=== PATIENT | female | born 1950 | race Caucasian/White ===

== ENCOUNTER → 2019-10-17 09:08 | Outpatient (CLI) | payer MEDICARE, SELFPAY ==
--- NOTE | ~2019-10-17 | XR_ITS ---
EXAMINATION: XR knee LT 2V DATE: 10/17/2019 09:55 INDICATION: Left knee pain. TECHNIQUE: 2 views of left knee were obtained. COMPARISON: None. FINDINGS: Bone alignment is normal. No fracture. There is mild tricompartmental osteoarthritis. There is a small knee joint effusion. IMPRESSION: 1. Mild left knee osteoarthritis. 2. Small left knee joint effusion. Reviewed, dictated and finalized at location A. [facility]
== END ==
PROVIDERS: PCP Internal Medicine; Visit Provider Internal Medicine
DX: M17.12 Unilateral primary osteoarthritis, left knee (principal); M25.462 Effusion, left knee
CPT/HCPCS: 73560

== ENCOUNTER 2020-10-07 17:59 | Emergency (ER) | payer MEDICARE, SELFPAY ==
--- NOTE | ~2020-10-07 | XR_ITS ---
EXAMINATION: XR shoulder LT min 2V DATE: 10/07/2020 18:54 INDICATION: Left shoulder pain. TECHNIQUE: 4 views of left shoulder were obtained. COMPARISON: Left shoulder radiographs 11/16/2010 FINDINGS: Bone alignment is normal. No fracture. There is mild osteoarthritis of glenohumeral joint a nd acromioclavicular joint. There is a large hiatal hernia. IMPRESSION: 1. Mild polyarticular osteoarthritis. 2. Large hiatal hernia. Reviewed, dictated and finalized at location A. [facility]
[2020-10-07 18:40] VITALS: BP 150/73; PULSE 60; RESP 16; TEMP 36.7; O2SAT 98
--- NOTE | 2020-10-07 19:00 | ED.UPPEXIN ---
HPI - Extremity Injury (Upper) General Chief Complaint: Extremity Injury, Upper Stated Complaint: fell left shoulder pain Time Seen by Provider: 10/07/20 18:01 Source: patient Mode of arrival: ambulatory Limitations: no limitations History of Present Illness HPI narrative: 70-year-old female presents to [facility] with complaints of left shoulder pain and decreased range of motion for the past 2 days. Patient reports that she was putting on her mask when she tripped and fell in her home landing on her left shoulder. Patient reports that she has been taking [id number] Motrin and Tylenol with minimal relief. Patient reports that she has previously fallen and landed on her left shoulder multiple times in the past. Patient denies hitting her head, loss of consciousness, swelling, erythema, bruising, numbness or tingling. MD complaint: injury to: left and shoulder Onset (ago): day(s) (2) Other Extremity Injury: Left: shoulder Place: home Relieving factors: none Exacerbating factors: movement of extremity Context: fall Associated symptoms: denies other symptoms Treatments prior to arrival: NSAIDS Related Data Home Medications Medication Instructions Recorded Confirmed calcium carbonat and lactate 200 2 tablet PO BID 02/18/20 07/25/20 mg calcium-vitamin D3 250 unit tablet oxybutynin chloride 5 mg tablet 5 mg PO BID 07/22/20 07/25/20 potassium chloride [Klor-Con M20] meq PO 10/07/20 Allergies Allergy/AdvReac Type Severity Reaction Status Date / Time doxycycline Allergy Unknown hives Verified 07/22/20 07:04 Review of Systems Constitutional: Constitutional: Denies chills, Denies fatigue, Denies fever(s) and Denies weakness ENT: Denies sore throat Cardiovascular: Cardiovascular: Denies chest pain, Denies rapid heart rate, Denies radiating jaw, neck or arm pain and Denies slow heart rate Respiratory: Respiratory: Denies chest congestion, Denies cough, Denies dyspnea and Denies wheezing Gastrointestinal: Gastrointestinal: Denies abdominal pain, Denies constipation, Denies diarrhea, Denies nausea and Denies vomiting Musculoskeletal: Musculoskeletal: Denies back pain, Reports arthralgias and Denies muscle cramps Comments: left shoulder pain and decreased ROM Integumentary/Breasts: Skin/Breast: Denies rash Neurologic: Denies dizziness [facility] Past Medical History Medical History (Updated 10/07/20 @ 19:08 by Malu Uriarte APRN) Afib BMI 35.0-35.9,adult Constipation Encounter for Medicare annual wellness exam Encounter for routine adult health examination without abnormal findings Hypomagnesemia Left knee pain On buttermaker continuous churn drug therapy OLIVIA on CPAP Vitamin D deficiency Surgical History Surgical History (Updated 10/07/20 @ 19:03 by Malu Uriarte APRN) H/O: hysterectomy Family History Family History Mother Family history of malignant neoplasm of kidney Family history of kidney disease Social History Social History Smoking status: Never smoker Alcohol intake: current Comments At time of signature, I agree with nursing past medical, surgical, social and family history. There is no relevant family history pertinent to the presenting complaint. Exam Const: General: no acute distress and alert Nutritional Appearance: well nourished Orientation/consciousness: patient oriented x3 Neck: Neck: normal visual inspection Resp: Effort & Inspection: normal respiratory effort, not tachypneic and no use of accessory muscles Auscultation: clear to auscultation bilaterally, no rales and no wheezes Cardio: Rate: regular rate, not bradycardic and not tachycardic Rhythm: regular rhythm Heart sounds: no murmurs Skin: General skin exam: normal color, no jaundice and no pallor Rashes: no rashes Wounds: no wounds Neuro: General: patient oriented x3 and moves all extremities Speech: normal
[2020-10-07 19:10] VITALS: BP 130/88
== END 2020-10-07 19:10 | disposition home or self-care (01) ==
PROVIDERS: Emergency Provider Nurse Practitioner Family; PCP Internal Medicine
DX: M25.512 Pain in left shoulder (principal); I48.91 Unspecified atrial fibrillation; G47.30 Sleep apnea, unspecified
CPT/HCPCS: 73030; 99213; A4565; G0463

== ENCOUNTER → 2020-10-13 07:42 | Outpatient (CLI) | payer MEDICARE, SELFPAY ==
--- NOTE | ~2020-10-13 | XR_ITS ---
EXAMINATION: XR wrist LT 2V DATE: 10/13/2020 08:05 INDICATION: Left wrist injury. TECHNIQUE: 2 views of left wrist were obtained. COMPARISON: None. FINDINGS: Bone alignment is normal. No fracture. There is mild osteoarthritis of first carpometacarpa l joint. IMPRESSION: 1. Mild osteoarthritis of first carpometacarpal joint. Reviewed, dictated and finalized at location A. SCRIPTION
--- NOTE | ~2020-10-13 | XR_ITS ---
EXAMINATION: XR forearm LT 2V DATE: 10/13/2020 08:05 INDICATION: Left forearm injury. TECHNIQUE: 2 views of left forearm were obtained. COMPARISON: None. FINDINGS: Bone alignment is normal. No fracture. There is mild osteoarthritis of first carpometacarpa l joint. No elbow joint effusion. IMPRESSION: 1. No fracture. Reviewed, dictated and finalized at location A. [facility] IMPRESSION: 1. No fracture.
--- NOTE | ~2020-10-13 | XR_ITS ---
EXAMINATION: XR elbow LT 2V DATE: 10/13/2020 08:05 INDICATION: Left elbow injury. TECHNIQUE: 2 views of left elbow were obtained. COMPARISON: None. FINDINGS: Bone alignment is normal. No fracture. Joint spaces are well maintained. There is an enthes ophyte at medial humeral epicondyle. There is no elbow joint effusion. IMPRESSION: 1. No fracture. Reviewed, dictated and finalized at location A. [facility] IMPRESSION: 1. No fracture.
== END ==
PROVIDERS: PCP Internal Medicine; Visit Provider Internal Medicine
DX: T14.90XA Injury, unspecified, initial encounter (principal); M79.602 Pain in left arm; M19.032 Primary osteoarthritis, left wrist
CPT/HCPCS: 73070; 73090; 73100

== ENCOUNTER 2020-12-03 06:52 | Outpatient (CLI) | payer MEDICARE, SELFPAY ==
--- NOTE | ~2020-12-03 | MR_ITS ---
EXAMINATION: MR shoulder LT wo/w con DATE: 12/03/2020 08:40 INDICATION: Left shoulder pain TECHNIQUE: Magnetic resonance imaging (MRI) of the left shoulder was performed without and with 19 mL Multihance intravenous contrast. Sequences included axial and coronal PD-weighted FS FSE, axial and sagittal T1-weighted FSE, sagittal and coronal T2-weighted FS FSE, axial T1-weighted FS FSE and postc ontrast axial and coronal T1-weighted FS FSE. COMPARISON: Left shoulder radiographs dated 10/07/2020 FINDINGS: Coracoacromial arch: The acromion undersurface is curved in morphology (type II). The coracoacromial ligament is normal. M oderate acromioclavicular osteoarthritis. Rotator cuff: Moderate supraspinatus and mild infraspinatus tendinopathy. There is a small bursal sided tear extend ing 5 mm AP along the midportion of the superior facet footplate. The bursal side of the tear margin is retracted approximately 8 mm . The tear involves approximately two thirds of the tendon thickness. The subscapularis and teres minor tendons are normal. No asymmetric atrophy or abnormal signal of th e muscles of the rotator cuff or remainder of the shoulder girdle. Biceps tendon, glenoid labrum and glenohumeral cartilage: Long head of the biceps tendon is normal. Degenerative tearing at the 10:30-11:30 position of the pos terior superior glenoid labrum. Mild partial thickness cartilage loss along the cephalad two thirds o f the glenoid and along the inferior and posterior margins of the humeral head with smooth chondral s urfaces and without degenerative subchondral changes. Fluid: Physiologic amount of fluid in the glenohumeral joint and biceps tendon sheath. No loose osteochondra l bodies. Small amount of fluid and mild associated enhancing synovitis in the subacromial/subdeltoid bursa as well as the subcoracoid bursa consistent with mild bursitis. Bones: Normal marrow signal with no edema, fracture or abnormal marrow replacing process. Mild cystic change and edema along the greater tuberosity footplate of the rotator cuff likely sequela of chronic rotat or cuff disease. IMPRESSION: 1. Mild to moderate supraspinatus and infraspinatus tendinopathy with small moderate severity bursal sided tear of the distal supraspinatus tendon. 2. Mild right and humeral osteoarthritis with degenerative tearing at the posterior superior glenoid labrum. 3. Moderate acromioclavicular osteoarthritis. 4. Mild subacromial/subdeltoid and subcoracoid bursitis. Reviewed, dictated and finalized at location A. IMPRESSION: 1. Mild to moderate supraspinatus and infraspinatus tendinopathy with small mod erate severity bursal sided tear of the distal supraspinatus tendon. 2. Mild right and humeral osteoarthritis with degenerative tearing at the poste rior superior glenoid labrum. 3. Moderate acromioclavicular osteoarthritis. 4. Mild subacromial/subdeltoid and subcoracoid bursitis.
== END 2020-12-03 06:53 | disposition home or self-care (01) ==
PROVIDERS: PCP Internal Medicine; Visit Provider Internal Medicine
DX: M19.011 Primary osteoarthritis, right shoulder (principal); M75.51 Bursitis of right shoulder
CPT/HCPCS: 73223; A9577

== ENCOUNTER → 2020-12-14 00:14 | Outpatient (CLI) | payer MEDICARE, SELFPAY ==
[2020-12-14 19:16] LABS: SARS-CoV-2 RNA PCR Negative
== END ==
PROVIDERS: PCP Internal Medicine; Visit Provider Internal Medicine Gastroenterology
DX: Z01.812 Encounter for preprocedural laboratory examination (principal); Z20.822 Contact with and (suspected) exposure to COVID-19
CPT/HCPCS: C9803; U0003; U0005

== ENCOUNTER 2020-12-17 01:10 | Day surgery (SDC) | payer MEDICARE, SELFPAY ==
[2020-12-09 14:43] VITALS: BMI 34.1
[2020-12-17 11:52] VITALS: BP 141/68; PULSE 69; RESP 18; TEMP 36.4; O2SAT 97; BMI 33.5
[2020-12-17 11:58] LABS: Glucose Point of Care 107 (65-105)
[2020-12-17] MEDS: LACTATED RINGERS 1,000 ML 150 ML IV CONT (11:59)
--- NOTE | 2020-12-17 12:10 | WPDANESEPPF ---
Anes - Initial Pre Proc Eval Procedure: Operation Date: 12/17/20 13:00 Proposed Procedures p Esophagogastroduodenoscopy & Colonoscopy - Yogesh Cisneros MD Date/Time: 12/17/20 12:10 Surgeon: Yogesh Cisneros MD Pre Op Diagnosis: iron deficient anemia Patient Data Age: 70 Gender: F Height: 1.68 m Weight: 94.2 kg Last Vital Signs Temp 36.4 C L 12/17/20 11:52 Pulse 69 12/17/20 11:52 Resp 18 12/17/20 11:52 BP 141/68 H 12/17/20 11:52 Pulse Ox 97 12/17/20 11:52 Allergies Allergy/AdvReac Type Severity Reaction Status Date / Time doxycycline Allergy Unknown hives Verified 12/17/20 11:50 Home Medications Medication Instructions Recorded Confirmed Type enalapril maleate 10 mg tablet 10 mg PO BID #180 tablet 01/07/20 12/09/20 Rx calcium carb and lactate 200 2 tablet PO BID 02/18/20 12/09/20 History mg-vitamin D3 6.25 mcg (250 unit) tablet citalopram 40 mg tablet 40 mg PO DAILY #90 tablet 04/01/20 12/09/20 Rx diltiazem HCl 240 mg 240 mg PO DAILY #90 cap 07/06/20 12/09/20 Rx capsule,extended release 24 hr oxybutynin chloride 5 mg tablet 5 mg PO BID 07/22/20 12/09/20 History magnesium oxide 400 mg (241.3 mg See Rx Instructions .ROUTE 08/31/20 12/09/20 Rx magnesium) tablet .COMPLEX #450 tablet potassium chloride [Klor-Con M20] 20 meq PO DAILY 10/07/20 12/09/20 History lorazepam 0.5 mg tablet 0.5 mg PO TID PRN #60 tablet 12/02/20 12/09/20 Rx cholecalciferol (vitamin D3) 1,250 1,250 mcg PO .COMPLEX #10 cap 12/04/20 12/09/20 Rx mcg (50,000 unit) capsule cholecalciferol (vitamin D3) 50 50 mcg PO DAILY 12/04/20 12/09/20 History mcg (2,000 unit) capsule Eliquis 5 mg PO BID 12/09/20 12/09/20 History atorvastatin 40 mg PO DAILY 12/09/20 12/09/20 History ferrous sulfate 325 mg (65 mg 325 mg PO BID #180 tablet 12/09/20 12/09/20 Rx iron) tablet levothyroxine 112 mcg PO DAILY 12/09/20 12/09/20 History metformin 500 mg PO DAILY 12/09/20 12/09/20 History pantoprazole 80 mg PO DAILY 12/09/20 12/09/20 History sod picosulf 10 mg-magnes 3.5 160 ml PO BID #160 ml 12/09/20 12/09/20 Rx gram-citric 12 gram/160 mL oral solution Laboratory Tests 12/17/20 11:55 POC Capillary Glucose 107 mg/dl mg/dl (65-105) Patient hx anesthesia problems: none Family hx anesthesia problems: none PMFSH Past Medical History Medical History (Updated 12/17/20 @ 12:10 by Ludwig Alston DO) Afib Arm pain, left BMI 35.0-35.9,adult BMI 36.0-36.9,adult Constipation DM type 2 (diabetes mellitus, type 2) Encounter for Medicare annual wellness exam Encounter for routine adult health examination with abnormal findings Encounter for routine adult health examination without abnormal findings Hyperlipidemia Hypertension Hypomagnesemia Hypothyroidism Iron deficiency anemia Left knee pain On care home drug therapy OLIVIA on CPAP Shoulder pain Trauma Vitamin D deficiency Surgical History Surgical History H/O: hysterectomy Family History Family History Mother Family history of malignant neoplasm of kidney Family history of kidney disease Social History Social History Smoking status: Never smoker Alcohol intake: current Alcohol use details: ONCE PER MONTH Living arrangements: with family Gender identity (if verbalized by the patient): Female Spiritual care concerns: No Anes - Eval Final PreProcedure Day of Procedure 12/17/20 12:10 Patient weight: obese Heart: regular rate and rhythm Lungs: clear to auscultation and normal air movement Airway: Mallampati scale class II Neurological: alert and oriented Last oral intake: >/= 8 hours ASA classification: III Emergent: no Anesthetic plan: proceed Anesthesia type and monitoring: general GIVS and standard monitoring Informed Consent: The patient's anest
--- NOTE | 2020-12-17 12:50 | WPDGICN ---
Assessment and Plan Assessment and plan (1) Iron deficiency anemia: Qualifiers: Iron deficiency anemia type: unspecified iron deficiency Qualified Code(s): D50.9 - Iron deficiency anemia, unspecified Code(s): D50.9 - Iron deficiency anemia, unspecified Status: Acute Assessment and Plan: Patient with anemia and iron deficient indices. Suspicious for chronic GI blood loss. Colonoscopy an EGD will be performed today to evaluate. Iron replacement subsequently has advised. (2) Dysphagia: Code(s): R13.10 - Dysphagia, unspecified Status: Acute Assessment and Plan: Patient reports food catching the mid substernal ports the chest on swallowing. Plan is for EGD to assess more thoroughly. Suspect this may be related to her known history of GE reflux. (3) Gastroesophageal reflux: Qualifiers: Esophagitis presence: without esophagitis Qualified Code(s): K21.9 - Gastro-esophageal reflux disease without esophagitis Code(s): K21.9 - Gastro-esophageal reflux disease without esophagitis Status: Acute Assessment and Plan: Patient with established history of GE reflux. She is known to have a hiatal hernia. Currently on acid suppression medications. Plan to continue anti-reflux measures. Further recommendations may be given after endoscopy. GI Consult Note Consult date/time: 12/17/20 12:50 HPI: Dorothea Aguirre is a 70 year old female Seen in evaluation at the request of DR. Cagle. patient found to be anemia with iron deficient indices. She denies any obvious blood in her stools. She does have a past medical history of atrial fibrillation on Eliquis anticoagulation. No obvious bleeding has been described however she has been treated for GE reflux disease because of a hiatal hernia. But currently denies any heartburn. She does notice occasional difficulty swallowing with food catching the mid substernal portion the chest. Family history is noncontributory. She presents today for GI endoscopy to evaluate anemia. Review of Systems Review of Systems: All systems reviewed & are unremarkable except as noted in HPI and below PMFSH Past Medical History Medical History Afib Arm pain, left BMI 35.0-35.9,adult BMI 36.0-36.9,adult Constipation DM type 2 (diabetes mellitus, type 2) Encounter for Medicare annual wellness exam Encounter for routine adult health examination with abnormal findings Encounter for routine adult health examination without abnormal findings Hyperlipidemia Hypertension Hypomagnesemia Hypothyroidism Iron deficiency anemia Left knee pain On intermediate frame tender drug therapy OLIVIA on CPAP Shoulder pain Trauma Vitamin D deficiency Surgical History Surgical History H/O: hysterectomy Family History Family History Mother Family history of malignant neoplasm of kidney Family history of kidney disease Social History Social History Smoking status: Never smoker Alcohol intake: current Alcohol use details: ONCE PER MONTH Living arrangements: with family Gender identity (if verbalized by the patient): Female Spiritual care concerns: No Meds Home Medications and Allergies Home Medications Medication Instructions Recorded Confirmed Type enalapril maleate 10 mg tablet 10 mg PO BID #180 tablet 01/07/20 12/09/20 Rx calcium carb and lactate 200 2 tablet PO BID 02/18/20 12/09/20 History mg-vitamin D3 6.25 mcg (250 unit) tablet citalopram 40 mg tablet 40 mg PO DAILY #90 tablet 04/01/20 12/09/20 Rx diltiazem HCl 240 mg 240 mg PO DAILY #90 cap 07/06/20 12/09/20 Rx capsule,extended release 24 hr oxybutynin chloride 5 mg tablet 5 mg PO BID 07/22/20 12/09/20 History magnesium oxide 400 mg (241.3 mg See
[2020-12-17 13:26] VITALS: BP 159/85; PULSE 65; RESP 23; O2SAT 99
[2020-12-17 13:36] VITALS: BP 164/80; PULSE 63; RESP 19; O2SAT 99
[2020-12-17 13:40] VITALS: BP 157/79; PULSE 59; RESP 21; O2SAT 97
== END 2020-12-17 14:05 | disposition home or self-care (01) ==
PROVIDERS: PCP Internal Medicine; Visit Provider Internal Medicine Gastroenterology
PROC: 0DJ08ZZ Inspection of Upper Intestinal Tract, Via Natural or Artificial Opening Endoscopic (ICD-10-PCS; CPT 43235; principal; 2020-12-17 13:00)
DX: Z12.11 Encounter for screening for malignant neoplasm of colon (principal); D50.9 Iron deficiency anemia, unspecified; K44.9 Diaphragmatic hernia without obstruction or gangrene; R13.10 Dysphagia, unspecified; K21.9 Gastro-esophageal reflux disease without esophagitis; I48.91 Unspecified atrial fibrillation; I10 Essential (primary) hypertension; E78.5 Hyperlipidemia, unspecified; E03.9 Hypothyroidism, unspecified; G47.33 Obstructive sleep apnea (adult) (pediatric); E55.9 Vitamin D deficiency, unspecified; E11.9 Type 2 diabetes mellitus without complications; Z79.01 Long term (current) use of anticoagulants; Z79.84 Long term (current) use of oral hypoglycemic drugs; E66.9 Obesity, unspecified; Z68.33 Body mass index [BMI] 33.0-33.9, adult
CPT/HCPCS: 43235; G0121; 82948; J2001; J2704; J7120

== ENCOUNTER 2024-09-18 07:36 | Outpatient (CLI) | payer MEDICARE, SELFPAY ==
--- OUTSIDE RECORDS SUMMARY | 2024-09-18 07:42 | XMS_ITS | Patient Health Summary ---
Author Organization [facility] Address [address] [place] [address] Care Team Providers Care Core Measures Abstractor Name Role Phone Javid Cagle MD Primary Care Provider [phone] Note from [facility],non-owned Affiliates and Associated Physician Practices is amultiple site organization consisting of ambulatory clinics and hospital sitesin [place], [place], [place] and [place]. This disclosure is being madepursuant to the Care Everywhere program and may not contain all information available regarding this patient. Last updated 18.[facility] Allergies No known active allergies Medications * Be aware that medications may not be up to date on this document. Alwaysverify current medications with the patient. * ENALAPRIL MALEATE PO * Potassium Chloride * atorvastatin (LIPITOR) 20 MG tablet Take 20 mg by mouth at bedtime * dilTIAZem coated beads 24hr (CARDIZEM CD) 120 MG capsule Take 120 mg by mouth once daily Do not crush or chew. * NIACIN ER PO * Citalopram Hydrobromide (CITALOPRAM PO) * Esomeprazole Magnesium (NEXIUM PO) * Levothyroxine Sodium (SYNTHROID PO) * OXYBUTYNIN TD * aspirin (ASPIRIN 81) 81 MG chew tablet Take 81 mg by mouth once daily * Levocetirizine Dihydrochloride (XYZAL PO) * albuterol HFA (PROVENTIL;VENTOLIN;PROAIR) 108 (90 BASE) MCG/ACT inhaler (Started 11/29/2017) Inhale 2 puffs by mouth every 6 hours as needed Social History Tobacco Use Types Packs/Day Years Used Date Smoking Tobacco: Never Smokeless Tobacco: Never Sex and Gender Information Value Date Recorded Sex Assigned at Not on file Gender Identity Not on file Sexual Orientation Not on file Last Filed Vital Signs Vital Sign Reading Time Taken Comments Blood Pressure 118/84 11/29/2017 5:05 PM CDT Pulse 72 11/29/2017 5:05 PM CDT Temperature 36.8 ??C (98.2 ??F) 11/29/2017 5:05 PM CD T Respiratory Rate 16 11/29/2017 5:05 PM CDT Oxygen Saturation 97% 11/29/2017 5:05 PM CDT Inhaled Oxygen Concentration - - Weight 95.7 kg (211 lb) 11/29/2017 5:05 PM CDT Height 167.6 cm (5' 6 ) 11/29/2017 5:05 PM CDT Body Mass Index 34.06 11/29/2017 5:05 PM CDT Procedures * INFLUENZA A+B - POINT OF CARE (AMB)(Performed 11/29/2017) Performed for Acute ethmoidal sinusitis, recurrence not specified * STREP A SCREEN - POINT OF CARE (AMB) STL(Performed 11/29/2017) Performed for Acute ethmoidal sinusitis, recurrence not specified Results * (ABNORMAL) INFLUENZA A+B - POINT OF CARE (AMB) (11/29/2017 5:43 PM CDT) Pathologist [facility] Influenza A Antigen Rapid Negative Negative Influenza B Antigen Rapid Positive(A) Negative Influenza Internal Control present NEGATIVE - POSITIVE Influenza Lot Number [id number] Influenza Expiration Date 09 22 2019 Other NASOPHARYNGEAL SWAB / Unknown 11/29/2017 5:43 PM CDT Man [facility] - POINT OF [place] RE ORDERABLES * STREP A SCREEN (11/29/2017 5:28 PM CDT) Pathologist [facility] Strep A Rapid POCT Negative Negative Strep A Internal Control Present Lot # [id number] Expiration Date 06 22 2019 Throat ENTIRE THROAT (SURFACE REGION OF NECK) / Unknown 11/29/2017 5:28 PM CDT Man [facility] - POINT OF [place] RE ORDERABLES Care Teams Core Measures Abstractor Relationship Specialty Start Date End Date Javid Cagle MD [address] [place] [address] PCP - General Internal Medicine 11/29/17
--- OUTSIDE RECORDS SUMMARY | 2024-09-18 07:42 | XMS_ITS | Referral Summary ---
Author Organization [facility] Address [address] [place] [address] Care Team Providers Care Diagrammer Name Role Phone Javid Cagle MD Primary Care Provider [phone] Source Comments [facility],non-owned Affiliates and Associated Physician Practices is amultiple site organization consisting of ambulatory clinics and hospital sitesin [place], [place], [place] and [place]. This disclosure is being madepursuant to the Care Everywhere program and may not contain all information available regarding this patient. Last updated 18.[facility] Allergies No known active allergies Medications * Be aware that medications may not be up to date on this document. Alwaysverify current medications with the patient. Medication Sig Dispensed Refills Start Date End Date Status ENALAPRIL MALEATE PO Acti ve Potassium Chloride Active atorvastatin (LIPITOR) 20 MG tablet Take 20 mg by mouth at bedtime Active dilTIAZem coated beads 24hr (CARDIZEM CD) 120 MG capsule Take 120 mg by mouth once daily Do not crush or chew. Active NIACIN ER PO Active Citalopram Hydrobromide (CITALOPRAM PO) Active Esomeprazole Magnesium (NEXIUM PO) Active Levothyroxine Sodium (SYNTHROID PO) Active OXYBUTYNIN TD Active aspirin (ASPIRIN 81) 81 MG chew tablet Take 81 mg by mouth once daily Active Levocetirizine Dihydrochloride (XYZAL PO) Active albuterol HFA (PROVENTIL;VENTOLIN;PRO AIR) 108 (90 BASE) MCG/ACT inhalerIndications:Whee zing Inhale 2 puffs by mouth every 6 hours as needed 1 Inhaler 11/29/2017 Active Social History Tobacco Use Types Packs/Day Years [...] Mass Index 34.06 11/29/2017 5:05 PM CDT Plan of Treatment Not on file Care Teams Diagrammer Relationship Specialty Start Date End Date Javid Cagle MD [address] [place] [address] PCP - General Internal Medicine 11/29/17
--- OUTSIDE RECORDS SUMMARY | 2024-09-18 07:42 | XMS_ITS | Clinical Summary ---
Author Organization [facility] D Address [address] [place] [address] Care Team Providers Care Director Database Name Role Phone Javid Cagle MD Primary Care Provider [phone] Julia Sandoval Unavailable [phone] Lai Caro MD Unavailable [phone] Robert Tidwell MD Unavailable [phone] Allergies Active Allergy Reactions Criticality Noted Date Comments Mold Sneezing Low 01/15/2021 Morphine Nausea & Vomiting,Nausea And Vomiting Low 01/25/2021 Medications enalapril (VASOTEC) 10 mg tabletIndications :hypertension Take 1 tablet (10 mg total) by mouth 2 (two) times a day Active pantoprazole DR (PROTONIX) 40 mg EC tabletIndications :Treatment of Non-Bleeding Gastric Disorder,GERD Take 1 tablet (40 mg total) by mouth every morning Active citalopram (CeleXA) 40 mg tabletIndications :Anxiety with Depression Take 1 tablet (40 mg total) by mouth nightly Active fexofenadine (LETTY) 180 mg tabletIndications :Seasonal Allergic Rhinitis Take 1 tablet (180 mg total) by mouth nightly Active calcium carbonate-vitamin D3 1500 mg (600 mg elemental) -200 units per tabletIndications :Hypocalcemia Prevention,Osteop orosis Take 1 tablet by mouth 2 (two) times a day Active potassium chloride ER (KLOR-CON) 20 mEq CR tablet Take 0.5 tablets (10 mEq total) by mouth 2 (two) times a day Active oxybutynin (DITROPAN) 5 mg tabletIndications :Bladder Hyperactivity Take 1 tablet (5 mg total) by mouth 3 (three) times a day 1 Active cholecalciferol (VITAMIN D-3) 2000 unit tabletIndications :Prevention of Vitamin D Deficiency Take 1 tablet (2,000 Units total) by mouth every morning Active magnesium oxide (MAG-OX) 400 mg (241.3 mg elemental magnesium) tabletIndications :hypomagnesemia Take 1 tablet (400 mg total) by mouth 2 (two) times a day 2 Active ferrous ojdlges-H-brusu acid 105 mg iron- 500 mg-800 mcg tablet extended release Take 325 mg by mouth daily 3 Active levothyroxine (SYNTHROID) 88 mcg tabletIndications :hypothyroidism Take 1 tablet (88 mcg total) 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 3 Active LORazepam (ATIVAN) 0.5 mg tablet Take 1 tablet (0.5 mg total) by mouth every 8 (eight) hours as needed for anxiety 3 Active atorvastatin (LIPITOR) 80 mg tabletIndications :hyperlipidemia Take 1 tablet (80 mg total) by mouth every morning 30 tablet 3 3 Active metFORMIN (GLUCOPHAGE) 500 mg tablet Take 1 tablet (500 mg total) by mouth 2 (two) times a day with meals Active apixaban (ELIQUIS) 5 mg tablet Take 1 tablet (5 mg total) by mouth 2 (two) times a day 180 tablet 3 4 Active dilTIAZem CD 240 mg 24 hr capsule TAKE 1 CAPSULE BY MOUTH DAILY 30 capsule 5 4 Active Additional Information Patient taking differently:240 mg oralNightly, Reported on 07/30/2024 famotidine (PEPCID) 10 mg tablet Take 2 tablets (20 mg total) by mouth daily as needed for heartburn Active Active Problems Patient Care Coordination No te Formatting of this note is d ifferent from the original. Yin Verduzco NP 03/28/2024 10:38 AM This is a 74-year-old female patient presenting to the clinic today in consultation for a large hiatal hernia. She is a self-referral to the clinic. She has a past medical history significant for allergic rhinitis, anemia, anxiety, atrial fibrillation, dysphagia, GERD, heart disease, hyperlipidemia, hypertension, sleep apnea, thyroid disease, and type 2 diabetes mellitus. She has never been a smoker. She has previously seen Dr. Michael Patrick in 2022 regarding dysphagia and has underwent multiple esophageal dilations in the past. She underwent a CT of the chest without contrast on 03/29/2024 which reveals: She underwent an esophagram on 01/17/2023 which reveals: Narrative & Impression EXAMINATION: BARIUM ESOPHAGRAM HISTORY: Chronic dysphagia to solids status post multiple dilatations, hiatal hernia. TECHNIQUE: The patient was given barium as well as effervescent crystals to drink, and multiple fluoroscopic and conventional overhead radiographs were obtained. FINDINGS: The patient's swallowing function is normal. The esophageal mucosa is normal without fold abnormalities or masses. A large hiatal hernia is noted. The esophageal motility is abnormal, with dysmotility of the distal esophagus proximal to the hiatal hernia and retention/reflux of swallowed contrast. There is passage of contrast through a normal gastroesophageal junction. The visualized portions of the stomach are normal. Mild amount of reflux was elicited with provocative maneuvers IMPRESSION: Distal esophageal dysmotility associated with a large hiatal hernia. Dictated by: Joe Barrios MD The radiology attending physician has personally reviewed this study, and had reviewed and/or edited this written report and agrees with it. Electronically signed by: Nia Bai M.D. Imaging available on file for review. She is here for further discussion and evaluation. Problem Noted Date Diagnosed Date Hiatal hernia 04/02/2024 Hiatal hernia with GERD 03/14/2024 Esophageal dysmotility 03/14/2024 Central retinal artery occlusion of left eye Esophageal dysphagia 01/17/2023 Anticoagulation management encounter 11/14/2021 Assessment & Plan (01/23/2023 11:39 AM CDT): - remains compliant and asymptomatic - continue to take Eliquis 5 mg BID for thromboprophylaxis - [id number] score is 4 Assessment & Plan (11/14/2021 1:41 PM CDT): The patient has a [id number] score of 4 (annualized risk of stroke 4.0 %). I have therefore recommended that she remain anticoagulated for thromboprophylaxis. Traumatic complete tear of left rotator cuff Overview (01/05/2021): Added automatically from request for surgery [id number] Obstructive sleep apnea syndrome 11/01/2019 Assessment & Plan (09/10/2021 11:51 AM [facility]): She is back to using her CPAP consistently. Atrial fibrillation may have been related to being off CPAP. Assessment & Plan (05/03/2021 9:46 AM CDT): She is compliant with CPAP. Assessment & Plan (05/04/2020 9:50 AM CDT): Mild, but symptomatically improved with treatment. Assessment & Plan (11/01/2019 9:45 AM CDT): Compliant with CPAP, and feeling much better. Untreated sleep apnea may have contributed to the development of atrial fibrillation, and hopefully treatment will reduce her risk of recurrence. Other persistent atrial fibrillation 07/09/2019 Assessment & Plan (07/30/2024 10:26 AM [facility]): No recurrent atrial arrhythmias since repeat ablation -- continue diltiazem and Eliquis 5 b.i.d. Assessment & Plan (01/22/2024 11:09 AM CDT): No recurrent atrial arrhythmias since repeat ablation - continue diltiazem and Eliquis 5 b.i.d. Assessment & Plan (07/25/2023 9:22 AM [facility]): Status post repeat AFib ablation and left atrial flutter ablation without any recurrent tachyarrhythmias in the month since her ablation. - continue diltiazem and Eliquis 5 b.i.d. Assessment & Plan (01/23/2023 11:38 AM CDT): - symptomatic, persistent atrial fibrillation - presents today in sinus rhythm at 61 beats per minute - denies any reoccurrence of atrial fibrillation, asymptomatic - decrease Cardizem CD to 240 mg daily for orthostatic hypotension - follow-up in 2 months for 12 lead EKG and clinic visit Assessment & Plan (01/11/2023 10:23 AM CDT): Status post repeat AFib ablation and left atrial flutter ablation without any recurrent tachyarrhythmias in the month since her ablation. - continue diltiazem and Eliquis 5 b.i.d. - follow-up with EP scheduled for next month Assessment & Plan (10/12/2022 5:05 PM [facility]): Underwent ablation in November 2021 without clinical recurrence of AFib however she presents today with EKG showing atypical flutter versus AFib at controlled rate; she does not have any reportable symptoms related to the arrhythmia. Wonder if her COVID infection a couple weeks ago could have been a trigger. Although she is tolerating well given she was free of recurrence following ablation until recently recommend bahai of sinus rhythm. Since this was likely triggered by COVID infection will perform cardioversion without antiarrhythmic; sotalol could be an option if she has early recurrence after cardioversion but will reserve this for now unless needed - continue diltiazem 240, Eliquis 5 b.i.d. - get 7 day event monitor to see if arrhythmia persistent and if so will schedule SHABBIR cardioversion Assessment & Plan (11/14/2021 1:38 PM CDT): Symptomatic persistent atrial fibrillation, refractory to cardioversion. We discussed options for management, and the patient is disinclined to pursue additional medical therapy. As an alternative, we discussed catheter ablation, which may represent her best chance for staying in sinus rhythm in the long-term. We discussed the rationale for atrial fibrillation ablation, including the steps involved in ablation. I detailed the risks of the procedure, including vascular injury/hematoma, myocardial injury/perforation, stroke, myocardial infarction, pulmonary vein stenosis, thermal esophageal injury, phrenic nerve injury, and . I estimated a 60-70% chance of freedom from long-term atrial arrhythmia, and the patient understands that occasionally a second procedure is necessary. Because of the patient's persistent atrial fibrillation, I recommended that they undergo transesophageal echocardiography (to exclude the presence of left atrial thrombus) immediately prior to EP study and ablation. From: August, Soraya LS, Shaunna JS, Adin H, Luis DEBBIE, Ciarra JE, Christine EMRE, Sujatha PT, Erendira HERRERA, ME, Barrett KT, Lexi RL, Benigno WG, Giuliano PJ, Tala CM, Vero CW. 2014 AHA/ACC/HRS guideline for the management of patients with atrial fibrillation: a report of the [place] [employer]/[place] [employer] Association Task Force on Practice Guidelines and the Heart Rhythm Society. J Am Renny Cardiol 2014. 6.3. AF Catheter Ablation to Maintain Sinus Rhythm: Recommendations Class IIb AF catheter ablation may be considered prior to initiation of antiarrhythmic drug therapy with class I or III antiarrhythmic medication for symptomatic persistent AF, when a rhythm control strategy is desired. (Level of Evidence: C) Assessment & Plan (10/14/2021 11:42 AM [facility]): She is back in atrial fibrillation less than one month following cardioversion. She is not symptomatic at this time and did not realize she was back in atrial fibrillation. However, when she previously had atrial fibrillation she was symptomatic Continue Eliquis 5 mg b.i.d. and diltiazem 240 mg daily. Will refer to Dr. Cutler, whom she knows from her 's consultation with him. Will have her follow-up in one year with Dr. Caro. Assessment & Plan (09/10/2021 11:49 AM [facility]): Symptomatic recurrence of atrial fibrillation, perhaps related to not using CPAP during her recovery from shoulder surgery. She takes Eliquis faithfully b.i.d.. Heart rate is controlled with diltiazem. Recommend cardioversion. She will not need a SHABBIR. She was instructed to take Eliquis the morning of her procedure even though she will otherwise be NPO. Assessment & Plan (05/03/2021 9:45 AM CDT): She is maintaining sinus rhythm since her cardioversion in 2019. She is chronically anticoagulated. She was documented to be in sinus rhythm at the time of surgery on 01/25/2021, and her rhythm is regular on exam today. Continue Eliquis. Assessment & Plan (05/04/2020 9:50 AM CDT): She is maintaining sinus rhythm since cardioversion. Continue Eliquis and diltiazem. Assessment & Plan (11/01/2019 9:37 AM CDT): Maintaining sinus rhythm following cardioversion. Continue Eliquis. Aspirin should be discontinued. There is no indication for it and it increases her risk of bleeding along with Eliquis. Assessment & Plan (08/05/2019 11:59 AM [facility]): Maintaining sinus rhythm following cardioversion. Continue current medications including Eliquis. Assessment & Plan (07/09/2019 7:43 PM [facility]): Her rate is controlled with diltiazem, and she is anticoagulated. She is mildly symptomatic with exertional dyspnea. Her heart is structurally near normal, and she does not have sleep apnea or thyroid abnormality. I recommend cardioversion in the hopes of restoring sinus rhythm after she has been anticoagulated for a full month. It is possible that atrial fibrillation will recur after this, and, depending on how different she feels in sinus rhythm from atrial fibrillation, a decision would be made as to whether to except atrial fibrillation or pursue further strategies to restore/maintain sinus rhythm. She is comfortable with this, and desires to proceed. Essential hypertension 07/09/2019 Assessment & Plan (07/30/2024 10:26 AM [facility]): Remains well controlled. - continue enalapril, diltiazem 360 Assessment & Plan (01/22/2024 11:09 AM CDT): Remains well controlled. - continue enalapril, diltiazem 360 Assessment & Plan (07/25/2023 9:22 AM [facility]): Remains well controlled. Infrequent lightheadedness episodes and we discussed that we can deescalate therapy if this worsens - continue enalapril, diltiazem 360 for now Assessment & Plan (01/11/2023 10:22 AM CDT): Remains well controlled. Infrequent lightheadedness episodes and we discussed that we can deescalate therapy if this worsens - continue enalapril, diltiazem 360 for now Assessment & Plan (10/12/2022 5:05 PM [facility]): Well controlled continue enalapril and diltiazem Assessment & Plan (10/14/2021 11:43 AM [facility]): Blood pressure is reasonably controlled on Vasotec 10 mg b.i.d. and diltiazem 240 mg daily. Blood pressure is a bit higher today than it has been on recent checks. No change made. Assessment & Plan (09/10/2021 11:50 AM [facility]): Blood pressure is well controlled on her current regimen of diltiazem 240 mg nightly and enalapril 10 mg b.i.d. which she should continue. Assessment & Plan (05/03/2021 9:45 AM CDT): Blood pressure is normal on her current regimen of diltiazem and vasotec, which she should continue. Assessment & Plan (05/04/2020 9:51 AM CDT): Blood pressure is adequately controlled on current regimen. No change was made. Assessment & Plan (11/01/2019 9:37 AM CDT): Blood pressure is adequately controlled on current regimen. No change was made. Assessment & Plan (08/05/2019 11:59 AM [facility]): Blood pressure is adequately controlled on current regimen. No change was made. Assessment & Plan (07/09/2019 7:43 PM [facility]): Blood pressure is adequately controlled on current regimen. No change was made. Mixed hyperlipidemia 07/09/2019 Assessment & Plan (07/30/2024 10:26 AM [facility]): Controlled -- continue atorvastatin 40 Assessment & Plan (01/22/2024 11:09 AM CDT): Controlled continue atorvastatin 40 Assessment & Plan (01/11/2023 10:23 AM CDT): Controlled continue atorvastatin 40 Assessment & Plan (10/14/2021 11:43 AM [facility]): Continue atorvastatin Assessment & Plan (09/10/2021 11:50 AM [facility]): Continue atorvastatin 40 mg daily. Assessment & Plan (05/03/2021 9:46 AM CDT): She is on chronic lipid-lowering therapy monitored by her primary care physician. Assessment & Plan (05/04/2020 9:51 AM CDT): On chronic lipid lowering therapy with good control. No changes made. Assessment & Plan (11/01/2019 9:37 AM CDT): On chronic lipid lowering therapy with good control. No changes made. Assessment & Plan (08/05/2019 11:59 AM [facility]): On chronic lipid lowering therapy with good control. No changes made. Assessment & Plan (07/09/2019 7:45 PM [facility]): Recent lipids look satisfactory, with total cholesterol 167, LDL 88, HDL 57, triglycerides 128. (Her primary care physician is further fine tuning to a lipoprotein panel). Pancreatic neoplasm 12/10/2012 Cubital tunnel syndrome 12/15/2011 Lateral epicondylitis 12/15/2011 Encounters Date Type Department Care Team Description 07/30/2024 10:15 AM [facility] Office Visit [facility] [address] [place] [address] Lai Caro MD Other persistent atrial fibrillation (HCC) (Primary Dx); Essential hypertension; Mixed hyperlipidemia from Last 3 Months Surgical History Surgery Date Site/Laterality Comments HYSTERECTOMY 08/14/2002 - 08/13/2003 INCONTINENCE SURGERY 08/14/2016 - 08/13/2017 lift ESOPHAGOGASTRODUODENOSCOPY 08/14/2020 - 08/13/2021 for anemia COLONOSCOPY 08/14/2020 - 08/13/2021 for anemia ROTATOR CUFF REPAIR 01/25/2021 Left ATRIAL ABLATION SURGERY 11/16/2021 ATRIAL ABLATION SURGERY 12/14/2022 ESOPHAGOGASTRODUODENOSCOPY 2023 - 02/10/2023 WITH DILATATION Medical History Medical History Date Comments Hyperlipidemia Hypertension GERD (gastroesophageal reflux disease) well controlled Thyroid disease Seasonal allergies Atrial fibrillation (CMS/HCC) (HCC) Anemia 12/2020 Anxiety 2018 Heart disease 06/2019 Sleep apnea 06/2020 CPAP Allergic rhinitis Type 2 diabetes mellitus (HCC) Dysphagia Stroke (HCC) 2022 in the eye LEFT DECREASED PERIPHERAL VISION Delayed emergence from general anesthesia STATES IS SLOW TO WAKE UP POST OP Hypothyroidism Family History Medical History Relation Name Comments Atrial fibrillation Mother Mercedes Cancer Mother Mercedes Clotting disorder Mother Mercedes Heart disease Mother Mercedes Heart failure Mother Mercedes Hypertension Mother Mercedes Kidney cancer Mother Mercedes Kidney disease Mother Mercedes Anesthesia problems Neg Hx Relation Name Status Comments Mother Mercedes Social History Tobacco Use Types Packs/Day Years Used Date Smoking Tobacco: Never Smokeless Tobacco: Never Tobacco Cessation:Counseling Given: Not Answered Alcohol Use Standard Drinks/Week Comments Yes 0 (1 standard drink = 0.6 oz pur e alcohol) Socially [employer] Util[employer] Answer Date Recorded In the past 12 months has [employer], gas, oil, or water [employer] threatened to shut off services in your home? No 04/18/2024 Social Connection and Isolat ion Panel [NHANES] Answer Date Recorded In a typical week, how many times do you talk on the phone with family, friends, or neighbors? More than three times a week 04/18/2024 How often do you get togethe r with friends or relatives? More than three times a week 04/18/2024 How often do you attend [facility] or orthodoxy services? More than 4 times per year 04/18/2024 Do you belong to any clubs o r organizations such as orthodox groups, unions, fraternal or athletic groups, or school groups? No 04/18/2024 How often do you attend meet ings of the clubs or organizations you belong to? Never 04/18/2024 Are you , , di vorced, , never , or living with a partner? 04/18/2024 AUDIT-C Answer Date Recorded Q1: How often do you have a drink containing alc ohol? Monthly or less 04/11/2024 Q2: How many drinks containi ng alcohol do you have on a typical day when you are drinking? 1 or 2 04/11/2024 Q3: How often do you have si x or more drinks on one occasion? Never 04/11/2024 Overall Financial Resource Strain (CARDIA) Answe r Date Recorded How hard is it for you to pa y for the very basics like food, housing, medical care, and heating? Not very hard 04/18/2024 PHQ-2 Answer Date Recorded PHQ-2 Total Score (If total score is 3 or more points, staff should administer the PHQ-9) 0 03/02/2023 Hunger Vital Sign Answer Date Recorded Within the past 12 months, y ou worried that your food would run out before you got the money to buy more. Never true 04/18/20 24 Within the past 12 months, t he food you bought just didn't last and you didn't have money to get more. Never true 04/18/2024 PRAPARE - Transportation Answer Date Re corded In the past 12 months, has l ack of transportation kept you from medical appointments or from getting medications? No 12/2023 In the past 12 months, has l ack of transportation kept you from meetings, work, or from getting things needed for daily living? No 04/18/2024 Housing Stability Vital Sign Answer Huey e Recorded In the last 12 months, was t here a time when you were not able to pay the mortgage or rent on time? No 04/18/2024 In the past 12 months, how m any times have you moved where you were living? 0 04/18/2024 At any time in the past 12 m [facility], were you homeless or living in a retirement (including now)? No 04/18/2024 Personal Safety Answer Date Recorded Have you ever been in or are you currently in a harmful physical or emotional relationship or is someone making you feel afraid or unsafe? Denies 04/17/2024 Comments No Sex and Gender Information Value Date Recorded Sex Assigned at Not on file Legal Sex Female 6:53 AM [facility] Gender Identity Female 05/03/2020 8:16 PM CDT Sexual Orientation Straight 05/03/2020 8: 16 PM CDT Obstetrics History Para Term AB IAB SAB Ectopic Multiple Livin g Live Births 2 2 2 Date Outcome GA Total Labor Labor/2nd/3rd Weight Sex Type Anes PTL Corin A1 A5 Name Clin Term Term Last Filed Vital Signs Vital Sign Reading Time Taken Comments Blood Pressure 122/80 07/30/2024 10:02 AM [facility] Pulse 66 07/30/2024 10:02 AM [facility] Temperature 36.4 ??C (97.5 ??F) 05/08/2024 9:19 AM CD T Respiratory Rate 12 05/08/2024 9:19 AM CDT Oxygen Saturation 96% 07/30/2024 10:02 AM [facility] Inhaled Oxygen Concentration - - Weight 88.5 kg (195 lb) 07/30/2024 10:02 AM [facility] Height 165.1 cm (5' 5 ) 07/30/2024 10:02 AM [facility] Body Mass Index 32.45 07/30/2024 10:02 AM [facility] Plan of Treatment Health Maintenance Due Date Last Done Comments Colon Cancer Screening-Colonoscopy 1950 Hepatitis C Screening 1950 Hepatitis B Screening 1969 Well Visit 65+ 01/13/2016 Zoster Vaccine (3 of 3) 06/10/2018 04/15/2018, 09/27 Pneumococcal vaccine 65+ (2 of 2 - PPSV23 or PCV20) 09/27/2018 09/27/2017 Osteoporosis Screening-Bone Density Scan 10/30/2021 10/31/2019, 10/31/2019 Depression Screening 03/02/2024 03/02/2023 Covid-19 Vaccine (5 - 2023-2 5 season) 2024 06/01/2022, 05/20/2021, 10/12/2020, Additional history exists Influenza Vaccine (#1) 2024 2, 05/20/2021, 05/11/2020, Additional history exists DTaP/Tdap/Td Vaccine (2 - Td or Tdap) 12/16/2024 12/16/2014 Breast Cancer Screening-Mammogram 02/08/2025 02/09/2024, 02/06/2023, 02/03/2022, Additional history exists Fall Risk Assessment 04/19/2025 04/19/2024, 04/20/20 Medical Devices Implanted Type Area Thread Milling Machine Set Up Operator Device Identifier Shelf Expiration Date Model / Serial / Lot [employer] [id number] Vascade 6/7fr Bioabsorbable Vascular System Compression Collagen - [id number] - [id number] Implanted:Qty: 1 on 11/16/2021 by Silvano Cutler MD at [facility] Collagen Right: Femoral [employer] 06/17/2023 [id number] -[id number] / [id number] / [id number] Vascade Mvp 6-12fr Venous Closure [id number] - [id number] - [id number] Implanted:Qty: 1 on 11/16/2021 by Silvano Cutler MD at [facility] Collagen Right: Femoral [employer] 08/17/2023 800-612C -[id number] / [id number] / [id number] Vascade Mvp 6-12fr Venous Closure [id number] - [id number] - [id number] Implanted:Qty: 1 on 11/16/2021 by Silvano Cutler MD at [facility] Collagen Right: Femoral [employer] 09/14/2023 800-612C -10U / [id number] / [id number] Vascade Mvp 6-12fr Venous Closure [id number] - [id number] - [id number] Implanted:Qty: 1 on 11/16/2021 by Silvano Cutler MD at [facility] Collagen Left: Femoral [employer] 09/02/2023 800-612C -10U / [id number] / [id number] [employer] Vascade Mvp 6-12fr Venous Closure [id number] - [id number] - [id number] Implanted:Qty: 1 on 12/14/2022 by Silvano Cutler MD at [facility] Collagen [employer] 09/27/2024 800-612C -[id number] / [id number] / [id number] [employer] Vascade Mvp 6-12fr Venous Closure [id number] - [id number] - [id number] Implanted:Qty: 1 on 12/14/2022 by Silvano Cutler MD at [facility] Collagen [employer] 09/27/2024 800-612C -10U / [id number] 221A / [id number] [employer] Device Vascular Closure Femoral Artery Bioabsorbable Dual Method Vascade 6-7fr Collagen [id number] - [id number] - [id number] Implanted:Qty: 1 on 12/14/2022 by Silvano Cutler MD at [facility] [employer] 08/30/2024 700-580I -05U / [id number] / [id number] [employer] Vascade Mvp 6-12fr Venous Closure [id number] - [id number] - [id number] Implanted:Qty: 1 on 12/14/2022 by Silvano Cutler MD at [facility] [employer] 09/27/2024 800-612C -10U / [id number] 221A / [id number] [employer] Ar-2267 Leacher Large Eyelet Pectoralis Button Fixation Latex Free - [id number] Implanted:Qty: 1 on 01/25/2021 by Rosendo Bradford MD at [facility] [facility] Left: Shoulder [employer] 09/13/2025 AR-2267 / / [id number] [employer] Ar-1927bct Corkscrew Suturetape 5.5mm 14.7mm Bioabsorbable Full Thread 1.3mm - [id number] Implanted:Qty: 1 on 01/25/2021 by Rosendo Bradford MD at [facility] Left: Shoulder [employer] 10/11/[address] / / [id number] [employer] Ar-2324 Bcm Swivelock 4.75mm 24.5mm Self Punch Vent Shoulder Rochelle Suture - [id number] Implanted:Qty: 1 on 01/25/2021 by Rosendo Bradford MD at [facility] Left: Shoulder [employer] 05/13/2024 AR-2324B CM / / [id number] [employer] Ar-2324 Bcm Swivelock 4.75mm 24.5mm Self Punch Vent Shoulder Rochelle Suture - [id number] Implanted:Qty: 1 on 01/25/2021 by Rosendo Bradford MD at [facility] Left: Shoulder [employer] 09/13/2024 AR-2324B CM / / [id number] Procedures Procedure Name Priority Date/Time Associated Diagnosis Comments POCT LIPID PANEL Routine 07/30/2024 10:5 5 AM [facility] Mixed hyperlipidemia SCREENING MAMMOGRAM BILATERAL W JOHN Schedule Routine, Read Routine (OP Routine) 02/09/2024 7:05 AM CDT Screening mammogram, encounter for DEXA AXIAL SKELETON BONE DENSITY 1 OR MORE SITES 10/31/2019 8:20 AM CDT from Last 3 Months or Most Recently Relevant to Health Maintenance Results * POCT lipid panel (07/30/2024 10:55 AM [facility]) Cholesterol, POC 157 l - h mg/dL HDL, POC 57 l - h mg/dL Triglycerides, POC 119 l - h mg/dL LDL Cholesterol POC 76 l - h mg/dL Chol/HDL Ratio, POC 1.3 l - h Non-HDL Cholesterol, POC 100 l - h mg/dL Cholesterol Total, POC 157 l - h mg/dL Capillary blood 07/30/2024 1 0:55 AM [facility] Lai Caro MD POINT OF CARE TEST ORDER AZAEL Final Result * Screening Mammogram Bilateral W John (02/09/2024 7:05 AM CDT) Anatomical Region Laterality Modality Breast Bilateral Mammography Impressions 02/09/2024 8:05 AM CDT BI-RADS?? ATLAS category (overall): 1 - Negative There is no mammographic evidence of malignancy. A 1 year screening mammogram is recommended. The patient has been or will be contacted. We recommend annual screening mammography for women at average risk of breast cancer beginning at age 40, based on guidelines of the [employer] (ACR Practice Parameter for the Performance of Screening and Diagnostic Mammography) and [employer]. For women with and elevated risk of breast cancer, please refer to the ACR Practice Parameter for specific screening recommendations. The patient will be entered into a reminder system with a target due date of 1 year for her next screening exam. Narrative 02/09/2024 8:05 AM CDT Screening Mammogram Bilateral W John: 02/09/24 The study was acquired using full field digital technology and interpreted from soft copy. 2D digital mammographic views, as well as 3D digital tomosynthesis were performed in the CC and MLO projections. CLINICAL: ??Screening mammogram, encounter for. ??No relevant medical history has been documented for this patient. ??No known family history of breast cancer. COMPARISONS: 02/06/2023 Screening Mammogram Bilateral W John 02/03/2022 Screening Mammogram Bilateral W John 12/04/2020 Screening Mammogram Bilateral W John 10/02/2019 Screening Mammogram Bilateral W John 08/20/2018 Screening Mammogram Bilateral W John BREAST TISSUE: The breasts have scattered areas of fibroglandular density. FINDINGS: No suspicious masses, suspicious calcifications, or other suspicious findings are seen within either breast. There has been no suspicious change. us Self Screening Mammogram IMG MAMMO PROCEDURES Fi nal Result * Dexa Axial Skeleton Bone Density 1 or 2 Site (10/31/2019 8:20 AM CDT) Anatomical Region Laterality Modality Body N/A Radiographic Rebecca ging 10/31/2019 8:53 AM CDT Narrative 10/31/2019 8:56 AM CDT Patient Name: DOROTHEA BISHOP ?Ordering Dr: Julia Sandoval PA-C ?? D.O.B: 1950 ? Exam Date: 10/31/19 ?? 819 ?? Age: 69 ?Sex: Female ? MR#: [id number] ?? Loc: ? RADIOLOGY REPORT ?? Order #[id number] ?? Bone Density ? Bone Density Hip/Spine (STD) ? Signed ? EXAM DESCRIPTION: ??Bone Density Hip/Spine (STD) ? REASON FOR STUDY: ?? 69 year old postmenopausal white female with given history ?? of screening. ? Thread Milling Machine Set Up Operator/Model: ??Hologic Horizon A (S/N [id number]) ? CLINICAL INFORMATION: ??Current height: 66 inches ? Maximum height: 66 inches ? Weight: 213 pounds ? Risk factors: Early surgical menopause at age 41. ??Does not perform regular ?? weight-bearing exercise. ??Regularly consumes dairy products. ??Drinks ?? caffeinated beverages. ? COMPARISON: ??None available. ? FINDINGS: ? AP LUMBAR SPINE L1-L4: ? Total BMD is 1.033 g/cm2 ? T-score is -0.1 ? LEFT HIP: ? Total BMD is 0.897 g/cm2 ? T-score is -0.4 ? Femoral neck BMD is 0.637 g/cm2 ? T-score is -1.9 ?Fracture risk assessment (FRAX): ?10 year risk for a major osteoporotic fracture is 10 % ?10 year risk for a hip fracture is 1.6 % ? The FRAX tool has not been validated in patients currently or previously ?? treated with pharmacotherapy for osteoporosis. ??In such patients, clinical ?? judgement must be exercised in interpreting FRAX scores as the fracture risk ?? may be overestimated. ? IMPRESSION: ??Low bone mass. ? REFERENCE: ??Bone mineral density: ?Normal (T-score above or = -1.0) ?Low bone mass ??(T-score between -1.0 and -2.5) replaces the previously ?? used term osteopenia ?Osteoporosis (T-score = or below -2.5) ? Medical evaluation for secondary causes of low bone mineral density may be ?? appropriate. ? FRAX is a World Health Organization validated fracture risk assessment tool ?? that calculates a person's 10 year probability of a major osteoporosis related ?? fracture and hip fracture. ??According to the National Osteoporosis Foundation ?? guidelines, postmenopausal women and men age 50 or older with low bone mass ?? and a 10 year probability of a major osteoporosis related fracture = or ?? greater than 20% or a 10 year probability of a hip fracture = or greater than ?? 3% should be considered for treatment. ? For further information, including treatment recommendations, please refer to ?? the 2013 ISCD Official Positions (http://www.iscd.org) and the NOF's ?? Clinician's Guide to Prevention and Treatment of Osteoporosis ?? (http://www.nof.org/professionals/clinical-guidelines) ? THIS IS AN ELECTRONICALLY VERIFIED FINAL REPORT ?? 10/31/2019 8:56 AM - Electronically signed by Inocencio Ramirez M.D. ?? Inocencio Ramirez M.D. ? RB: RB ?? D: ??10/31/2019 8:56 AM ?? T: ??10/31/2019 8:56 AM ? Report ID: [id number] ?? Reading Location: ??[id number] ? REPORT ELECTRONICALLY SIGNED IN OTHER VENDOR SYSTEM ?? Resulting Agency Comment O Procedure Note Inocencio Ramirez MD - 10/31/2019 Patient Name: DOROTHEA BISHOP Dr: Julia Sandoval PA-C, D.O.B: 1950 Exam Date: 10/31/19819 Age: 69 Sex: Female MR#: [id number] Loc: RADIOLOGY REPORT Order #[id number] Bone Density Bone Density Hip/Spine (STD) Signed EXAM DESCRIPTION: Bone Density Hip/Spine (STD) REASON FOR STUDY: 69 year old postmenopausal white female with givenhistory of screening. Thread Milling Machine Set Up Operator/Model: [employer] Horizon A (S/N [id number]) CLINICAL INFORMATION: Current height: 66 inches Maximum height: 66 inches Weight: 213 pounds Risk factors: Early surgical menopause at age 41. Does not performregular weight-bearing exercise. Regularly consumes dairy products. Drinks caffeinated beverages. COMPARISON: None available. FINDINGS: AP LUMBAR SPINE L1-L4: Total BMD is 1.033 g/cm2 T-score is -0.1 LEFT HIP: Total BMD is 0.897 g/cm2 T-score is -0.4 Femoral neck BMD is 0.637 g/cm2 T-score is -1.9 Fracture risk assessment (FRAX): 10 year risk for a major osteoporotic fracture is 10 % 10 year risk for a hip fracture is 1.6 % The FRAX tool has not been validated in patients currently or previously treated with pharmacotherapy for osteoporosis. In such patients,clinical judgement must be exercised in interpreting FRAX scores as the fracturerisk may be overestimated. IMPRESSION: Low bone mass. REFERENCE: Bone mineral density: Normal (T-score above or = -1.0) Low bone mass (T-score between -1.0 and -2.5) replaces thepreviously used term osteopenia Osteoporosis (T-score = or below -2.5) Medical evaluation for secondary causes of low bone mineral density maybe appropriate. FRAX is a World Health Organization validated fracture risk assessmenttool that calculates a person's 10 year probability of a major osteoporosisrelated fracture and hip fracture. According to the National OsteoporosisFoundation guidelines, postmenopausal women and men age 50 or older with low bonemass and a 10 year probability of a major osteoporosis related fracture = or greater than 20% or a 10 year probability of a hip fracture = or greaterthan 3% should be considered for treatment. For further information, including treatment recommendations, pleaserefer to the 2013 ISCD Official Positions (http://www.iscd.org) and the NOF's Clinician's Guide to Prevention and Treatment of Osteoporosis (http://www.nof.org/professionals/clinical-guidelines) THIS IS AN ELECTRONICALLY VERIFIED FINAL REPORT 10/31/2019 8:56 AM - Electronically signed by Inocencio JAIN: SUSY Report ID: [id number] Reading Location: [id number] REPORT ELECTRONICALLY SIGNED IN OTHER VENDOR SYSTEM Julia LARA IMG DXA PROCEDURES Final Re sult from Last 3 Months or Most Recently Relevant to Health Maintenance Insurance [facility] MEDICARE SUPPLEMENT INSURANCE MEDICARE [facility] MEDICARE SUPPLEMENT INSURANCE MEDICARE [facility] MEDICARE SUPPLEMENT INSURANCE Advance Directives For more information, please contact: [phone] * Full Code (Latest Code Status on File) Date Activated Date Inactivated Comments 04/17/2024 7:19 PM 04/19/2024 2:24 PM * Full Code Date Activated Date Inactivated Comments 03/02/2023 9:22 PM 03/03/2023 10:42 PM Care Teams Director Database Relationship Specialty Start Date End Date Javid Cagle MD [address] [place] [address] PCP - General Internal Medicine 06/21/19 Julia Sandoval, PA [address] [facility] [address] [place] [address] Physician Senior Care Provider Physician Senior Care Provider 02/03/22 Lai Caro MD [address] [facility] [address] [place] [address] Consulting Physician Cardiology 04/11/24 Robert Tidwell MD [address] [facility] [place] [id number] [place] [address] Surgeon Thoracic Surgery 04/19/24
--- OUTSIDE RECORDS SUMMARY | 2024-09-18 07:42 | XMS_ITS | Referral Summary ---
Author Organization [facility] D Address [address] [place] [address] Care Team Providers Care Ssis Etl Developer Name Role Phone Javid Cagle MD Primary Care Provider [phone] Julia Sandoval Unavailable [phone] Lai Caro MD Unavailable [phone] Robert Tidwell MD Unavailable [phone] Encounters Date Type Department Care Team Description 07/30/2024 10:15 AM JINRIKISHA DRIVER Office Visit [facility] Cardiology [address] [facility] [address] [place] [address] Lai Caro MD Other persistent atrial fibrillation (HCC) (Primary Dx); Essential hypertension; Mixed hyperlipidemia from Last 3 Months Allergies Active Allergy Reactions Criticality Noted Date [...] (two) times a day 2 Active ferrous mqgibix-X-xjvey acid 105 mg iron- 500 mg-800 mcg tablet extended release Take 325 mg by mouth daily 3 Active levothyroxine (SYNTHROID) 88 mcg tabletIndications :hypothyroidism Take 1 tablet (88 mcg total) by mouth shoe cutter before breakfast 3 Active LORazepam (ATIVAN) 0.5 [...] CAPSULE BY MOUTH DAILY 30 capsule 5 Active Additional Information Patient taking differently:240 mg [...] and agrees with it. Electronically signed by: Nai Bai M.D. Imaging available on file for [...] Eliquis 5 mg BID for thromboprophylaxis - [id number] score is 4 Assessment & Plan (11/14/2021 1:41 PM CDT): The patient has a MCN8AS4-ACQs score of 4 (annualized risk of stroke 4.0 %). I have therefore recommended that she remain anticoagulated for thromboprophylaxis. Traumatic complete tear of left rotator cuff Overview (01/05/2021): Added automatically from request for surgery [id number] Obstructive sleep apnea syndrome 11/01/2019 Assessment & Plan (09/10/2021 11:51 AM JINRIKISHA DRIVER): She is back to using her CPAP [...] 07/09/2019 Assessment & Plan (07/30/2024 10:26 AM JINRIKISHA DRIVER): No recurrent atrial arrhythmias since repeat ablation -- continue diltiazem and Eliquis 5 b.i.d. Assessment & Plan (01/22/2024 11:09 AM CDT): No recurrent atrial arrhythmias since repeat ablation - continue diltiazem and Eliquis 5 b.i.d. Assessment & Plan (07/25/2023 9:22 AM JINRIKISHA DRIVER): Status post repeat AFib ablation and left [...] month Assessment & Plan (10/12/2022 5:05 PM JINRIKISHA DRIVER): Underwent ablation in November 2021 without clinical [...] of recurrence following ablation until recently recommend quaker of sinus rhythm. Since this was likely [...] with atrial fibrillation: a report of the [place] [employer]/[place] [employer] Association Task Force on Practice Guidelines [...] C) Assessment & Plan (10/14/2021 11:42 AM JINRIKISHA DRIVER): She is back in atrial fibrillation less [...] Caro. Assessment & Plan (09/10/2021 11:49 AM JINRIKISHA DRIVER): Symptomatic recurrence of atrial fibrillation, perhaps related [...] Eliquis. Assessment & Plan (08/05/2019 11:59 AM JINRIKISHA DRIVER): Maintaining sinus rhythm following cardioversion. Continue current medications including Eliquis. Assessment & Plan (07/09/2019 7:43 PM JINRIKISHA DRIVER): Her rate is controlled with diltiazem, and [...] 07/09/2019 Assessment & Plan (07/30/2024 10:26 AM JINRIKISHA DRIVER): Remains well controlled. - continue enalapril, diltiazem 360 Assessment & Plan (01/22/2024 11:09 AM CDT): Remains well controlled. - continue enalapril, diltiazem 360 Assessment & Plan (07/25/2023 9:22 AM JINRIKISHA DRIVER): Remains well controlled. Infrequent lightheadedness episodes and we discussed that we can deescalate therapy if this worsens - continue enalapril, diltiazem 360 for now Assessment & Plan (01/11/2023 10:22 AM CDT): Remains well controlled. Infrequent lightheadedness episodes and we discussed that we can deescalate therapy if this worsens - continue enalapril, diltiazem 360 for now Assessment & Plan (10/12/2022 5:05 PM JINRIKISHA DRIVER): Well controlled continue enalapril and diltiazem Assessment & Plan (10/14/2021 11:43 AM JINRIKISHA DRIVER): Blood pressure is reasonably controlled on Vasotec 10 mg b.i.d. and diltiazem 240 mg daily. Blood pressure is a bit higher today than it has been on recent checks. No change made. Assessment & Plan (09/10/2021 11:50 AM JINRIKISHA DRIVER): Blood pressure is well controlled on her [...] made. Assessment & Plan (08/05/2019 11:59 AM JINRIKISHA DRIVER): Blood pressure is adequately controlled on current regimen. No change was made. Assessment & Plan (07/09/2019 7:43 PM JINRIKISHA DRIVER): Blood pressure is adequately controlled on current regimen. No change was made. Mixed hyperlipidemia 07/09/2019 Assessment & Plan (07/30/2024 10:26 AM JINRIKISHA DRIVER): Controlled -- continue atorvastatin 40 Assessment & Plan (01/22/2024 11:09 AM CDT): Controlled continue atorvastatin 40 Assessment & Plan (01/11/2023 10:23 AM CDT): Controlled continue atorvastatin 40 Assessment & Plan (10/14/2021 11:43 AM JINRIKISHA DRIVER): Continue atorvastatin Assessment & Plan (09/10/2021 11:50 AM JINRIKISHA DRIVER): Continue atorvastatin 40 mg daily. Assessment & [...] made. Assessment & Plan (08/05/2019 11:59 AM JINRIKISHA DRIVER): On chronic lipid lowering therapy with good control. No changes made. Assessment & Plan (07/09/2019 7:45 PM JINRIKISHA DRIVER): Recent lipids look satisfactory, with total cholesterol 167, LDL 88, HDL 57, triglycerides 128. (Her primary care physician is further fine tuning to a lipoprotein panel). Pancreatic neoplasm 12/10/2012 Cubital tunnel syndrome 12/15/2011 Lateral epicondylitis 12/15/2011 Social History Tobacco Use Types Packs/Day Years Used Date Smoking Tobacco: Never Smokeless Tobacco: Never Tobacco Cessation:Counseling Given: Not Answered Alcohol Use Standard Drinks/Week Comments Yes 0 (1 standard drink = 0.6 oz pur e alcohol) Socially [employer] Answer Date Recorded In the past 12 months has e [employer], gas, oil, or water [place] threatened to shut off services in your [...] week 04/18/2024 How often do you attend [facility] or rastafarian services? More than 4 times per year 04/18/2024 Do you belong to any clubs o r organizations such as gnosticism groups, unions, fraternal or athletic groups, or [...] any time in the past 12 m [facility], were you homeless or living in a halfway (including now)? No 04/18/2024 Personal Safety Answer Date Recorded Have you ever been in or are you currently in a harmful physical or emotional relationship or is someone making you feel afraid or unsafe? Denies 04/17/2024 Comments No Sex and Gender Information Value Date Recorded Sex Assigned at Not on file Legal Sex Female 6:53 AM JINRIKISHA DRIVER Gender Identity Female 05/03/2020 8:16 PM CDT Sexual Orientation Straight 05/03/2020 8: 16 PM CDT Last Filed Vital Signs Vital Sign Reading Time Taken Comments Blood Pressure 122/80 07/30/2024 10:02 AM JINRIKISHA DRIVER Pulse 66 07/30/2024 10:02 AM JINRIKISHA DRIVER Temperature 36.4 ??C (97.5 ??F) 05/08/2024 9:19 AM CD T Respiratory Rate 12 05/08/2024 9:19 AM CDT Oxygen Saturation 96% 07/30/2024 10:02 AM JINRIKISHA DRIVER Inhaled Oxygen Concentration - - Weight 88.5 kg (195 lb) 07/30/2024 10:02 AM JINRIKISHA DRIVER Height 165.1 cm (5' 5 ) 07/30/2024 10:02 AM JINRIKISHA DRIVER Body Mass Index 32.45 07/30/2024 10:02 AM JINRIKISHA DRIVER Plan of Treatment Not on file Medical Devices Implanted Type Area Trader Device Identifier Shelf Expiration Date Model / Serial / Lot [employer] [id number] Vascade 6/7fr Bioabsorbable Vascular System Compression Collagen - [id number] - [id number] Implanted:Qty: 1 on 11/16/2021 by Silvano Cutler MD at [facility] Collagen Right: Femoral [employer] 06/17/2023 700-580I -05U / [id number] 104A / [id number] Vascade Mvp 6-12fr Venous Closure [id number] - [id number] - [id number] Implanted:Qty: 1 on 11/16/2021 by Silvano Cutler MD at [facility] Collagen Right: Femoral [employer] 08/17/2023 800-612C -10U / [id number] 208A / [id number] 208A Vascade Mvp 6-12fr Venous Closure [id number] - [id number] - [id number] Implanted:Qty: 1 on 11/16/2021 by Silvano Cutler MD at [facility] Collagen Right: Femoral [employer] 09/14/2023 800-612C -10U / [id number] 202B / [id number] Vascade Mvp 6-12fr Venous Closure [id number] - [id number] - [id number] Implanted:Qty: 1 on 11/16/2021 by Silvano Cutler MD at [facility] Collagen Left: Femoral [employer] 09/02/2023 800-612C -10U / [id number] 125A / [id number] 125A [employer] Vascade Mvp 6-12fr Venous Closure [id number] - [id number] - [id number] Implanted:Qty: 1 on 12/14/2022 by Silvano Cutler MD at [facility] Collagen [employer] 09/27/2024 800-612C -10U / [id number] 221A / [id number] 221A [employer] Vascade Mvp 6-12fr Venous Closure [id number] - [id number] - [id number] Implanted:Qty: 1 on 12/14/2022 by Silvano Cutler MD at [facility] Collagen [employer] 09/27/2024 800-612C -10U / [id number] 221A / [id number] 221A [employer] Device Vascular Closure Femoral Artery Bioabsorbable Dual Method Vascade 6-7fr Collagen [id number] - [id number] - [id number] Implanted:Qty: 1 on 12/14/2022 by Silvano Cutler MD at [facility] Collagen [employer] 08/30/2024 700-580I -05U / [id number] 118A / [id number] 118A [employer] Vascade Mvp 6-12fr Venous Closure [id number] - [id number] - [id number] Implanted:Qty: 1 on 12/14/2022 by Silvano Cutler MD at [facility] Collagen [employer] 09/27/2024 800-612C -10U / [id number] 221A / [id number] 221A [employer] Ar-2267 Assignment Desk Assistant Large Eyelet Pectoralis Button Fixation Latex Free - [id number] Implanted:Qty: 1 on 01/25/2021 by Rosendo Bradford MD at [facility] [place] Left: Shoulder [employer] 09/13/2025 AR-2267 / / [id number] [employer] Ar-1927bct Corkscrew Suturetape 5.5mm 14.7mm Bioabsorbable Full Thread 1.3mm - [id number] Implanted:Qty: 1 on 01/25/2021 by Rosendo Bradford MD at [facility] [place] Left: Shoulder [employer] 10/11/[address] / / [id number] [employer] Ar-2324 Bcm Swivelock 4.75mm 24.5mm Self Punch Vent Shoulder Bristow Suture - [id number] Implanted:Qty: 1 on 01/25/2021 by Rosendo Bradford MD at [facility] Left: Shoulder [employer] 05/13/2024 AR-2324B CM / / [id number] [employer] Ar-2324 Bcm Swivelock 4.75mm 24.5mm Self Punch Vent Shoulder Bristow Suture - [id number] Implanted:Qty: 1 on 01/25/2021 by Rosendo Bradford MD at [facility] Left: Shoulder [employer] 09/13/2024 AR-2324B CM / / [id number] Procedures Procedure Name Priority Date/Time Associated Diagnosis Comments POCT LIPID PANEL Routine 07/30/2024 10:5 5 AM JINRIKISHA DRIVER Mixed hyperlipidemia SCREENING MAMMOGRAM BILATERAL W JOHN Schedule Routine, Read Routine (OP Routine) 02/09/2024 7:05 AM CDT Screening mammogram, encounter for DEXA AXIAL SKELETON BONE DENSITY 1 OR MORE SITES 10/31/2019 8:20 AM CDT from Last 3 Months or Most Recently Relevant to Health Maintenance Results * POCT lipid panel (07/30/2024 10:55 AM JINRIKISHA DRIVER) Cholesterol, POC 157 l - h mg/dL HDL, POC 57 l - h mg/dL Triglycerides, POC 119 l - h mg/dL LDL Cholesterol POC 76 l - h mg/dL Chol/HDL Ratio, POC 1.3 l - h Non-HDL Cholesterol, POC 100 l - h mg/dL Cholesterol Total, POC 157 l - h mg/dL Capillary blood 07/30/2024 1 0:55 AM JINRIKISHA DRIVER us Lai Caro MD POINT OF CARE TEST [...] age 40, based on guidelines of the [place] [employer] (ACR Practice Parameter for the Performance of Screening and Diagnostic Mammography) and [place] College of Obstetricians and Gynecologists. For women [...] D.O.B: 1950 ? Exam Date: 10/31/19 ?? 0820 ?? Age: 69 ?Sex: Female ? MR#: [id number] ?? Loc: ? RADIOLOGY REPORT ?? Order #[id number] ?? Bone Density ? Bone Density Hip/Spine (STD) ? Signed ? EXAM DESCRIPTION: ??Bone Density Hip/Spine (STD) ? REASON FOR STUDY: ?? 69 year old postmenopausal white female with given history ?? of screening. ? Trader/Model: ??orderbolt A (S/N [id number]) ? CLINICAL INFORMATION: ??Current height: 66 inches [...] M.D. ?? Inocencio Ramirez M.D. ? RB: SUSY ?? D: ??10/31/2019 8:56 AM ?? T: ??10/31/2019 8:56 AM ? Report ID: [id number] ?? Reading Location: ??[id number] ? REPORT ELECTRONICALLY SIGNED IN OTHER VENDOR SYSTEM ?? Resulting Agency Comment O Procedure Note Inocencio Ramirez MD - 10/31/2019 Patient Name: DOROTHEA BISHOP Dr: Julia Sandoval PA-CO.B: 1950 Exam Date: 10/31/19819 Age: 69 Sex: Female MR#: [id number] Loc: RADIOLOGY REPORT Order #[id number] Bone Density Bone Density Hip/Spine (STD) Signed EXAM DESCRIPTION: Bone Density Hip/Spine (STD) REASON FOR STUDY: 69 year old postmenopausal white female with givenhistory of screening. Trader/Model: DesignGooroo Horizon A (S/N [id number]) CLINICAL INFORMATION: Current height: 66 inches Maximum [...] - Electronically signed by Inocencio Ramirez M.D. RB: SUSY Report ID: [id number] Reading Location: [id number] REPORT ELECTRONICALLY SIGNED IN OTHER VENDOR SYSTEM Julia LARA IMRamin DXA PROCEDURES Final Re sult from Last 3 Months or Most Recently Relevant to Health Maintenance Insurance [facility] MEDICARE SUPPLEMENT INSURANCE MEDICARE [facility] MEDICARE SUPPLEMENT INSURANCE * Guarantor: Dorothea Bishop Account Type Relation to Patient Date of Phone Billing Address Personal/Family Self 1950 [address] [place] [address] MEDICARE [facility] MEDICARE SUPPLEMENT INSURANCE Advance Directives For more information, please contact: [phone] * Full Code (Latest Code Status on File) Date Activated Date Inactivated Comments 04/17/2024 7:19 PM 04/19/2024 2:24 PM * Full Code Date Activated Date Inactivated Comments 03/02/2023 9:22 PM 03/03/2023 10:42 PM Care Teams Ssis Etl Developer Relationship Specialty Start Date End Date Javid Cagle MD [address] [facility] [place], [place] [id number] PCP - General Internal Medicine 06/21/19 Julia Sandoval PA [address] [place] [address] Physician Grading Machine Operator Physician Grading Machine Operator 02/03/22 Lai Caro MD [address] [place] [address] Consulting Physician Cardiology 04/11/24 Robert Tidwell MD [id number] [place] [address] Surgeon Thoracic Surgery 04/19/24
--- OUTSIDE RECORDS SUMMARY | 2024-09-18 07:42 | XMS_ITS | Clinical Summary ---
Author Organization [facility] Address [address] [place] [address] Care Team Providers Care Mechanical Engineering Professor Name Role Phone Julia Sandoval Primary Care Provider [phone] Allergies Active Allergy Reactions Criticality Noted Date Comments Molds & Smuts Sneezing Low 01/15/2021 Morphine Nausea and Vomiting Low 01/25/2021 Medications enalapril 10 MG tablet Take 10 mg by mouth 2 (two) times daily. Active apixaban 5 MG tablet 5 mg 2 (two) times daily. Active atorvastatin 40 MG tablet Take 40 mg by mouth daily. Active citalopram 40 MG tablet Active potassium chloride CR 20 MEQ tablet Take 20 mEq by mouth daily. Active metFORMIN 500 MG tablet Take 500 mg by mouth 2 (two) times daily with meals. Active pantoprazole EC 40 MG tablet Take 40 mg by mouth daily. Active magnesium oxide 400 (241.3 Mg) MG tablet Take 400 mg by mouth 2 (two) times daily. Active loratadine 10 MG tablet Take 10 mg by mouth daily. Active oxybutynin 5 MG tablet Take 5 mg by mouth 2 (two) times daily. Active dilTIAZem CD (CARDIZEM CD) 240 MG 24 hr capsule Take 240 mg by mouth daily. Active magnesium oxide (MAG-OX) 400 MG tablet TAKE 3 TABLETS BY MOUTH IN THE MORNING AND 2 TABLETS IN THE EVENING 09/06/2022 Active levothyroxine (SYNTHROID) 100 MCG tablet Take 1 tablet by mouth daily. 09/19/2022 Active Active Problems Problem Noted Date Diagnosed Date Traumatic complete tear of left rotator cuff Overview (10/11/2022): Added automatically from request for surgery [id number] Obstructive sleep apnea syndrome 11/01/2019 Overview (10/11/2022): Last Assessment & Plan: She is back to using her CPAP consistently. Atrial fibrillation may have been related to being off CPAP. Essential hypertension 07/09/2019 Overview (09/17/2019): Last Assessment & Plan: Blood pressure is adequately controlled on current regimen. No change was made. Mixed hyperlipidemia 07/09/2019 Overview (09/17/2019): Last Assessment & Plan: On chronic lipid lowering therapy with good control. No changes made. Other persistent atrial fibrillation (CMS/HCC HH S/HCC) 07/09/2019 Overview (09/17/2019): Last Assessment & Plan: Maintaining sinus rhythm following cardioversion. Continue current medications including Eliquis. Other persistent atrial fibrillation (CMS/HCC HH S/HCC) 07/09/2019 Overview (10/11/2022): Last Assessment & Plan: Symptomatic persistent atrial fibrillation, refractory to cardioversion. [...] prior to EP study and ablation. From: August CT, Soraya LS, Shaunna JS, Adin H, Luis DEBBIE, Ciarra JE, Christine EMRE, Sujatha PT, Erendira HERRERA, ME, Barrett KT, Lexi RL, Benigno WG, Giuliano PJ, Tala CM, Vero CW. 2014 AHA/ACC/HRS guideline for the management of patients with atrial fibrillation: a report of the [place] College of Cardiology/[place] Heart Association Task Force on Practice Guidelines and the Heart Rhythm Society. J Am Renny Cardiol 2014. 6.3. AF Catheter Ablation to Maintain Sinus Rhythm: Recommendations Class IIb AF catheter ablation may be considered prior to initiation of antiarrhythmic drug therapy with class I or III antiarrhythmic medication for symptomatic persistent AF, when a rhythm control strategy is desired. (Level of Evidence: C) Mixed hyperlipidemia 07/09/2019 Overview (10/11/2022): Last Assessment & Plan: Continue atorvastatin Essential hypertension 07/09/2019 Overview (10/11/2022): Last Assessment & Plan: Blood pressure is reasonably controlled on Vasotec 10 mg b.i.d. and diltiazem 240 mg daily. Blood pressure is a bit higher today than it has been on recent checks. No change made. Cubital tunnel syndrome 12/15/2011 Lateral epicondylitis 12/15/2011 Resolved Problems Problem Noted Date Diagnosed Date Resolved Date Pancreatic neoplasm 12/10/2012 10/11/19 23 Immunizations Name Administration Dates Next Due Fluzone High Dose - >Age 65 (Prefilled Syringe) 06/01/2022,05/11/2020,06/27/2019,2016 Hepatitis A 11/13/2012 Hepatitis A (Havrix 1440 El.U) 11/13/2012 Influenza (Generic) 06/08/2016,06/09/2015,2013 Influenza Adult (Generic) 05/20/2021,06/27/2019, 04/28/2017 MMR 02/09/2015,01/08/2015,12/26/2014 Pneumococcal (Prevnar 13) 09/27/2017 Shingrix 04/15/2018 Tdap (Adacel) 12/16/2014 Zoster (Zostavax) 77046 Unt/0.65Ml 09/27/2017 Family History Medical History Relation Comments accident Father CHF Mother Kidney Cancer Mother Relation Status Comments Father Mother Social History Tobacco Use Types Packs/Day Years Used Date Smoking Tobacco: Never Passive Smoke Exposure: Never Smokeless Tobacco: Never Alcohol Use Standard Drinks/Week Comments Yes 0 (1 standard drink = 0.6 oz pur e alcohol) occ PHQ-2 Answer Date Recorded Patient Health Questionnaire-2 Score 0 10/11/2022 Education Answer Date Recorded What is the highest level of school you have completed or the highest degree you have received? High school graduate 09/17/2019 Comments No Sex and Gender Information Value Date Recorded Sex Assigned at Not on file Legal Sex Female 3:15 PM CLEARANCE COORDINATOR Gender Identity Not on file Sexual Orientation Not on file Last Filed Vital Signs Vital Sign Reading Time Taken Comments Blood Pressure 138/84 10/11/2022 8:37 AM CLEARANCE COORDINATOR Pulse 67 10/11/2022 7:45 AM CLEARANCE COORDINATOR Temperature 36.6 ??C (97.8 ??F) 10/11/2022 7:45 AM CS T Respiratory Rate 20 10/11/2022 7:45 AM CLEARANCE COORDINATOR Oxygen Saturation 94% 10/11/2022 7:45 AM CLEARANCE COORDINATOR Inhaled Oxygen Concentration - - Weight 97.1 kg (214 lb) 10/11/2022 7:45 AM CLEARANCE COORDINATOR Height 165.1 cm (5' 5 ) 10/11/2022 7:45 AM CLEARANCE COORDINATOR Body Mass Index 35.61 10/11/2022 7:45 AM CLEARANCE COORDINATOR Plan of Treatment Health Maintenance Due Date Last Done Comments Colorectal Cancer Screening Colonoscopy (10 Years) 1950 Hepatitis C 1968 Annual Medicare Wellness Visit 01/13/2016 Zoster Vaccines (3 of 3) 06/10/2018 04/15/2018, 09/14 Pneumococcal Vaccine: 65+ Years (2 of 2 - PPSV23 or PCV20) 09/27/2018 09/27/2017 PHQ-2 (Physician Raccoon) 10/11/2023 10/11/2022 COVID-19 Vaccine ( season) 2024 06/01/2022, 05/20/2021, 10/12/2020, Additional history exists Influenza Adult (#1) 2024 06/01/2022, 05/20/2021, 05/11/2020, Additional history exists PHQ-2 (Physician Raccoon) 08/14/2024 10/11/2022 DTaP, Tdap and Td Vaccines (2 - Td or Tdap) 12/16/2024 12/16/2014 Mammogram Screening 02/06/2025 02/06/2023, 0 RSV Immunization or 60+ Years (1 - 1-dose 75+ series) 2026 Dexa Scan (General) Completed 10/31/2019, 6 Meningococcal B Vaccine Aged Out No l onger eligible based on patient's age to complete this topic Meningococcal Vaccine Aged Out No lobo flavia eligible based on patient's age to complete this topic RSV Immunizations Under 20 Months Aged Out No longer eligible based on patient's age to complete this topic Procedures Procedure Name Priority Date/Time Associated Diagnosis Comments MAMMOGRAM GENERIC (SCAN ORDER) Routine 02/06/2023 BONE DENSITY/DEXA Routine 10/31/2019 Encounter for osteoporosis screening in asymptomatic postmenopausal patient from Last 3 Months or Most Recently Relevant to Health Maintenance Results * MAMMOGRAM (02/06/2023) Anatomical Region Laterality Modality Other us [facility] Scanned SCANNING Final Resu lt * BONE DENSITY/DEXA (10/31/2019) Anatomical Region Laterality Modality Bone Bone Density Julia LARA DEXA Edited Resul t - Final from Last 3 Months or Most Recently Relevant to Health Maintenance Insurance MEDICARE [facility] Care Teams Mechanical Engineering Professor Relationship Specialty [place] [address] [place] [address] PCP - General PHYSICIAN WEAVER APPRENTICE 09/17/19
--- OUTSIDE RECORDS SUMMARY | 2024-09-18 07:42 | XMS_ITS | Clinical Summary ---
Author Organization [facility] Address [address] [place] [address] Care Team Providers Care Lpn Care Manager Name Role Phone Javid Cagle MD Primary Care Provider [phone] Source Comments [facility],non-owned Affiliates and Associated Physician Practices is amultiple site organization consisting of ambulatory clinics and hospital sitesin [place], [place], [place] and [place]. This disclosure is being madepursuant to the Care Everywhere program and may not contain all information available regarding this patient. Last updated 18.[facility] Allergies No known active allergies Medications * [...] hours as needed 1 Inhaler 11/29/2017 Active Family History Medical History Relation Name Comments CVA Maternal Grandmother CAD (Coronary Artery Disease) Mother Cancer - Renal Mother Relation Name Status Comments Maternal Grandmother Mother Social History Tobacco Use Types Packs/Day [...] 11/29/2017 5:05 PM CDT Plan of Treatment Health Maintenance Due Date Last Done Comments BONE DENSITY TESTING 1950 COLOGUARD (AGES 45-75) - COL ON CA SCREENING 1950 COLON MONITORING 1951 COLONOSCOPY - COLON CA SCREENING 1950 CT COLONOGRAPHY - COLON CA SCREENING 1950 Colorectal Cancer Screening 1950 FIT - COLON CA SCREENING 1951 FLEX SIG - COLON CA SCREENING 1950 MAMMOGRAM 1950 MEDICARE AWV ? 12 MONTHS 1950 HEPATITIS C SCREENING 01/07/1969 DTAP/TDAP/TD VACCINES (1 - Tdap) 1970 PNEUMOCOCCAL VACCINE 50+ (1 of 1 - PCV) 2001 ZOSTER VACCINE (1 of 2) 2001 SCREENING FOR DIABETES 11/29/2017 COVID-19 VACCINE ( - 2023-2 5 season) 2024 INFLUENZA VACCINE (#1) 2024 DEPRESSION SCREENING 08/14/2024 Respiratory Syncytial Virus (RSV) Vaccine Pt: or over 60 yrs (1 - 1-dose 75+ series) 2026 HEPATITIS B VACCINE Aged Out No longe r eligible based on patient's age to complete this topic HIB VACCINE Aged Out No longer eligi ble based on patient's age to complete this topic HPV VACCINE Aged Out No longer eligi ble based on patient's age to complete this topic MENINGOCOCCAL (Group B) VACCINE Aged Out No longer eligible based on patient's age to complete this topic MENINGOCOCCAL VACCINE Aged Out No lobo flavia eligible based on patient's age to complete this topic Care Teams Lpn Care Manager Relationship Specialty Start Date End Date Javid Cagle MD [address] [place] [id number] PCP - General Internal Medicine 11/29/17
[2024-09-18 08:45] LABS: Influenza A QL RT-PCR Positive (Negative); Influenza B QL RT-PCR Negative (Negative)
== END 2024-09-18 07:37 | disposition home or self-care (01) ==
PROVIDERS: PCP Internal Medicine; Visit Provider Internal Medicine
DX: R50.9 Fever, unspecified (principal); R05.9 Cough, unspecified
CPT/HCPCS: 87502

== ENCOUNTER 2025-02-21 10:15 | Outpatient (CLI) | payer MEDICARE, SELFPAY ==
--- NOTE | ~2025-02-21 | XR_ITS ---
Right Shoulder Technique: AP and scapular Y views were obtained. Clinical History: Pain Findings: No fracture or dislocation is seen. Osseous alignment is anatomic. The glenohumeral and acr omioclavicular joint spaces are preserved. Soft tissues are unremarkable. Impression: Unremarkable right shoulder radiographs. Reviewed, dictated and finalized at [facility]. Impression: Unremarkable right shoulder radiographs.
== END 2025-02-21 10:16 | disposition home or self-care (01) ==
PROVIDERS: PCP Internal Medicine; Visit Provider Internal Medicine
DX: M25.511 Pain in right shoulder (principal); M25.611 Stiffness of right shoulder, not elsewhere classified; G89.29 Other chronic pain
CPT/HCPCS: 73030